=== PATIENT | male | born 1970 | race Hispanic/Latino ===

== ENCOUNTER 2020-08-26 19:37 | Emergency (ER) | payer OTHER ==
--- NOTE | 2020-08-26 20:30 | Event Note ---
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 Further treatment and workup at subsequent clinical providers discretion. Patient/guardian urged not to elope from the ED as their condition may be serious if not clinically assessed and managed. Initial orders include: labs
[2020-08-26 20:59] LABS: Hematocrit 43.8 % (35.5-45.6); Hemoglobin 15.3 gm/dl (11.8-15.2); Mean Corpuscular HGB Conc 35 % (32-34); Mean Corpuscular Volume 95 fl (84-94); Platelet Count 485 K/mm3 (140-440); Red Blood Count 4.64 M/mm3 (3.65-5.03); Red Cell Distribution Width 12.8 % (13.2-15.2)
[2020-08-26 21:06] VITALS: BP 169/101
[2020-08-26 21:23] LABS: Alanine Aminotransferase 49 units/L (7-56); Albumin 3.9 g/dL (3.9-5); BUN/Creatinine Ratio 14; Blood Urea Nitrogen 14 mg/dL (9-20); Calcium 9.2 mg/dL (8.4-10.2); Hemolysis Index 4
--- NOTE | 2020-08-26 22:06 | Cat Scan Report ---
CT pelvis w con INDICATION / CLINICAL INFORMATION: left buttock abscess anal fistula. TECHNIQUE: All CT scans at this location are performed using CT dose reduction for ALARA by means of automated e xposure control. COMPARISON: None available. FINDINGS: There is an air-containing tract extending from the medial inferior aspect of the left buttock to jus t below the left scrotum. No fluid collection is seen in this area. Mild soft tissue edema is seen. P resumably the tract extends from the anus. No free fluid is seen in the pelvis. No enlarged lymph nod es are identified. The bladder and the appendix are normal. IMPRESSION: Fistulous tract containing air extending from the inferior medial left buttock to just below the left hemiscrotum. Presumably the tract originates from the anus Signer Name: Kamran Bautista MD FACR Signed: 08/26/2020 10:01 PM Workstation Name: [id number]
[2020-08-26 22:27] LABS: Band Neutrophils # (Manual) 0.3 K/mm3; Total Cells Counted 100
[2020-08-26 22:31] LABS: Platelet Estimate Consistent w Auto; RBC Morphology Normal
[2020-08-26] MEDS ORDERED: AMOXICILLIN/K CLAV 875/125MG TAB PO ONE (22:52)
--- NOTE | 2020-08-26 22:55 | Emergency Department Report ---
- General Chief Complaint: Rectal Pain Stated Complaint: BUTTOCK PAIN Time Seen by Provider: 08/26/20 20:27 Source: patient Mode of arrival: Ambulatory Limitations: No Limitations - History of Present Illness Initial Comments: Chief complaint: "I have an abscess." HPI: This is a 50-year-old male with history of hypertension, tobacco dependence who has been treated for left buttock perianal abscess recently. In March 2020 patient was treated for buttock perianal abscess with antibiotics while vacationing in [place]. No surgery was performed at that time. Patient had mild improvement. However the abscess did persist although it decreased in size. Recently over the past several weeks he was treated at 4 different hospitals in [facility]. Recently he underwent incision and drainage in the operating room. He has a loop drain in place. He has had continual purulent drainage. He was encouraged to return to the [facility] in order to have definitive care and decrease his fit-me-jgfztv expenses. Patient was treated with oral and injectable antibiotics. He denies fever. He has mild soreness of the left buttock. Drain is in place. 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 He has been drug-free since 2005. He pleasantly declined analgesia of any sort. -: Gradual, month(s) (4 months) Location: other (Left buttock) Place: other (Initially treated in March in [place], over the past month treated in [facility]) Associated Symptoms: other (Severe shortness) Treatments Prior to Arrival: other (Surgical intervention incision and drainage under General anesthesia, IV antibiotics) - Related Data Home Medications Medication Instructions Recorded Confirmed Last Taken Diclofenac Sodium [Voltaren-Xr] 100 mg PO PRN PRN 05/10/16 05/22/16 2 Weeks Ago ~05/08/16 Previous Rx's Medication Instructions Recorded Last Taken Type HYDROcodone/APAP 5-325 [Willis 1 each PO Q6HR PRN #30 tablet 05/22/16 Unknown Rx 5/325] Tramadol HCl/Acetaminophen 1 each PO Q6HR PRN #50 tablet 05/22/16 Unknown Rx [Ultracet Tablet] Amoxicillin/Potassium Clav 1 each PO BID 10 Days #20 tablet 08/26/20 Unknown Rx [Augmentin 875-125 Tablet] Allergies Allergy/AdvReac Type Severity Reaction Status Date / Time oxycodone HCl [From Percocet] AdvReac Nausea Verified 05/15/16 10:47 ED Review of Systems ROS: Stated complaint: BUTTOCK PAIN Other details as noted in HPI Comment: All other systems reviewed and negative Constitutional: denies: fever, malaise Respiratory: denies: cough, shortness of breath Gastrointestinal: denies: abdominal pain, nausea, vomiting ED Past Medical Hx - Past Medical History Previous Medical History?: Yes Hx Hypertension: Yes (BP UP AND DOWN- NO MEDS) Hx Renal Disease: No Hx Seizures: No - Surgical History Past Surgical History?: Yes Additional Surgical History: Anal Fistula Repair - Social History Smoking Status: Current Every Day Smoker Substance Use Type: Alcohol - Medications Home Medications: Home Medications Medication Instructions Recorded Confirmed Last Taken Type Diclofenac Sodium [Voltaren-Xr] 100 mg PO PRN PRN 05/10/16 05/22/16 2 Weeks Ago History ~05/08/16 HYDROcodone/APAP 5-325 [Willis 1 each PO Q6HR PRN #30 tablet 05/22/16 Unknown Rx 5/325] Tramadol HCl/Acetaminophen 1 each PO Q6HR PRN #50 tablet 05/22/16 Unknown Rx [Ultracet Tablet] Amoxicillin/Potassium Clav 1 each PO BID 10 Days #20 tablet 08/26/20 Unknown Rx [Augmentin 875-125 Tablet] ED Physical Exam - General Limitations: No Limitations General appearance: alert, in no apparent distress, other (Pleasant talkative am bulatory without difficulty) - Head Head exam: Present: atraumatic, normocephalic - Eye Eye exam: Present: normal appearance - ENT ENT exam: Present: mucous membranes moist - Neck Neck exam: Present: normal inspection, full ROM - Respiratory Respiratory exam: Present: normal lung sounds bilaterally. Absent: respiratory distress, wheezes, rales, rhonchi - Cardiovascular Cardiovascular Exam: Present: regular rate, normal rhythm, normal heart sounds. Absent: systolic murmur, diastolic murmur, rubs, gallop - GI/Abdominal GI/Abdominal exam: Present: soft, normal bowel sounds. Absent: distended, tenderness, guarding, rebound - Rectal Rectal exam: Present: deferred - Extremities Exam Extremities exam: Present: other (Left buttock 2 incisions with loop drain in place mild erythema of the left buttock extending to the perineum) - Neurological Exam Neurological exam: Present: alert, oriented X3 - Psychiatric Psychiatric exam: Present: normal affect, normal mood - Skin Skin exam: Present: warm, dry, intact, normal color. Absent: rash ED Course Vital Signs 08/26/20 08/26/20 20:10 21:05 Temperature 98.2 F 97.7 F Pulse Rate 71 71 Respiratory 18 16 Rate Blood Pressure 167/102 Blood Pressure 169/101 [Right] O2 Sat by Pulse 96 97 Oximetry ED Medical Decision Making - Lab Data Result diagrams: 08/26/20 20:29 08/26/20 20:29 Laboratory Results - last 24 hr 08/26/20 08/26/20 08/26/20 20:29 20:29 20:29 WBC 9.9 RBC 4.64 Hgb 15.3 H Hct 43.8 MCV 95 H MCH 33 H MCHC 35 H RDW 12.8 L Plt Count 485 H Add Manual Diff Complete Total Counted 100 Seg Neuts % (Manual) 72.0 H Band Neutrophils % 3.0 Lymphocytes % (Manual) 16.0 Monocytes % (Manual) 7.0 Eosinophils % (Manual) 1.0 Metamyelocytes % 1.0 Nucleated RBC % Not Reportable Seg Neutrophils # Man 7.1 Band Neutrophils # 0.3 Lymphocytes # (Manual) 1.6 Abs React Lymphs (Man) 0.0 Monocytes # (Manual) 0.7 Eosinophils # (Manual) 0.1 Basophils # (Manual) 0.0 Metamyelocytes # 0.1 Myelocytes # 0.0 Promyelocytes # 0.0 Blast Cells # 0.0 WBC Morphology Not Reportable Hypersegmented Neuts Not Reportable Hyposegmented Neuts Not Reportable Hypogranular Neuts Not Reportable Smudge Cells Not Reportable Toxic Granulation Not Reportable Toxic Vacuolation Not Reportable Dohle Bodies Not Reportable Pelger-Huet Anomaly Not Reportable Bharti Rods Not Reportable Platelet Estimate Consistent w auto Clumped Platelets Not Reportable Plt Clumps, EDTA Not Reportable Large Platelets Not Reportable Giant Platelets Not Reportable Platelet Satelliting Not Reportable Plt Morphology Comment Not Reportable RBC Morphology Normal Dimorphic RBCs Not Reportable Polychromasia Not Reportable Hypochromasia Not Reportable Poikilocytosis Not Reportable Anisocytosis Not Reportable Microcytosis Not Reportable Macrocytosis Not Reportable Spherocytes Not Reportable Pappenheimer Bodies Not Reportable Sickle Cells Not Reportable Target Cells Not Reportable Tear Drop Cells Not Reportable Ovalocytes Not Reportable Helmet Cells Not Reportable [place] Bodies Not Reportable [place] Rings Not Reportable [place] Cells Not Reportable Bite Cells Not Reportable Crenated Cell Not Reportable Elliptocytes Not Reportable Acanthocytes (Spur) Not Reportable Rouleaux Not Reportable Hemoglobin C Crystals Not Reportable Schistocytes Not Reportable Malaria parasites Not Reportable Bulmaro Bodies Not Reportable Hem Pathologist Commnt No Sodium 141 Potassium 4.2 Chloride 105.1 Carbon Dioxide 26 Anion Gap 14 BUN 14 Creatinine 1.0 Estimated GFR > 60 BUN/Creatinine Ratio 14 Glucose 89 Lactic Acid 1.40 Calcium 9.2 Total Bilirubin 0.20 AST 31 ALT 49 Alkaline Phosphatase 73 Total Protein 6.9 Albumin 3.9 Albumin/Globulin Ratio 1.3 - Radiology Data Radiology results: report reviewed CT pelvis w con INDICATION / CLINICAL INFORMATION: left buttock abscess anal fistula. TECHNIQUE: All CT scans at this location are performed using CT dose reduction for ALARA by means of automated exposure control. COMPARISON: None available. FINDINGS: There is an air-containing tract extending from the medial inferior aspect of the left buttock to just below the left scrotum. No fluid collection is seen in this area. Mild soft tissue edema is seen. Presumably the tract extends from the anus. No free fluid is seen in the pelvis. No enlarged lymph nodes are identified. The bladder and the appendix are normal. IMPRESSION: Fistulous tract containing air extending from the inferior medial left buttock to just below the left hemiscrotum. Presumably the tract originates from the anus - Medical Decision Making Clinical impression: Resolving perianal/buttock abscess with loop drain in place. No fluid collection seen on CT scan. With persistent cellulitis I have prescribed 10 days of Augmentin. Patient was given paper copy of his CT results. CBC chemistry within normal limits. No evidence of sepsis. Patient appears well. He understands to follow-up with the surgeon and his PCP. He was given referral to our general surgeon on-call. He is discharged home in stable condition. Critical care attestation.: If time is entered above; I have spent that time in minutes in the direct care of this critically ill patient, excluding procedure time. ED Disposition Clinical Impression: Perianal abscess, Left buttock abscess Disposition: [id number] TO HOME OR SELFCARE Is pt being admited?: No Does the pt Need Aspirin: No Condition: Stable Instructions: Anorectal Abscess Prescriptions: Amoxicillin/Potassium Clav [Augmentin 875-125 Tablet] 1 each PO BID 10 Days #20 tablet Referrals: CHAMP OCONNOR MD [Staff Physician] - 3-5 Days
== END 2020-08-26 23:01 | disposition home or self-care (01) ==
LOC: ED 19:37
DX: L02.31 Cutaneous abscess of buttock (principal); L02.215 Cutaneous abscess of perineum; I10 Essential (primary) hypertension; F17.200 Nicotine dependence, unspecified, uncomplicated; Z79.899 Other long term (current) drug therapy
CPT/HCPCS: 36415; 72193; 80053; 82140; 85007; 85025; 99284; Q9967